=== PATIENT | female | born 1965 | race Hispanic/Latino ===

== ENCOUNTER → 2016-09-13 | Outpatient (CLI) | payer MEDICAID ==
[~2016-09-13] MED LIST: BENZ56AE TP; CALC-697 PO; CALCIUM; DCS100C PO; ESTR42.52 VG; HYDR-3583 PO; Hydrocodone Bit/Acetaminophen PO; IBP600T1 PO; IBUP-15 PO; LUTERA PO; MECL-105 PO; MECL-106 PO; METH4TAB PO; NITR-65 PO; ONDA4TAB10 PO; ONDA4TAB8 PO; POLY17PO23 GT; SULF1TAB38 PO; VENL75CA93; VITAMIN D; [UNRECOGNIZED DRUG - OTHER]
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
--- NOTE | 2016-09-14 15:54 | Diagnostic Imaging Report ---
Bilateral screening mammogram. The current study was also evaluated with a Computer Aided Detection (CAD) system. INDICATION: Screening. No current complaints stated on the questionnaire. COMPARISON: 09/10/2015. FINDINGS: The breasts are composed of heterogeneously dense parenchyma which may decrease mammographic sensitivity. There is no mass, architectural distortion, or suspicious cluster of calcification identified. A new benign-appearing calcification is seen in the upper-outer aspect of the left breast. IMPRESSION: No mammographic evidence of malignancy. ACR BI-RADS Category 2: Benign findings. Result letter will be mailed to the patient. Note: At least 10% of breast cancer is not imaged by mammography. Dictated by: Dictated on workstation # [id number]
== END ==
LOC: RAD 10:13
PROVIDERS: ATTEND Obstetrics & Gynecology
DX: Z12.31 Encounter for screening mammogram for malignant neoplasm of breast (principal)

== ENCOUNTER 2017-09-12 13:40 | Emergency (ER) | payer SELFPAY ==
[~2017-09-12] VITALS: Ht 162.6 cm; Wt 73.0 kg
[2017-09-12] MEDS ORDERED: fentaNYL INJECTION 100 MCG/2 ML AMP ONE (13:54)
[2017-09-12] MEDS ORDERED: fentaNYL INJECTION 100 MCG/2 ML AMP IVP ONE ×2 (14:00→14:30)
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
[2017-09-12] MEDS ORDERED: ONDANSETRON 4 MG/2 ML (SDV) Z0FRAN ONE ×2 (14:08)
[2017-09-12 14:11] LABS: EOSINOPHILS % (AUTO) 3 % (0-10); HEMATOCRIT 38 % (35-52); HEMOGLOBIN 11.9 G/DL (11.5-16.0); LYMPHOCYTES % (AUTO) 39 % (12-44); MEAN CORPUSCULAR HEMOGLOBIN 29 PG (25-34); MEAN CORPUSCULAR HGB CONC 31 G/DL (32-36); MEAN CORPUSCULAR VOLUME 93 FL (80-99); MEAN PLATELET VOLUME 10.9 FL (7.4-10.4); MONOCYTES % (AUTO) 7 % (0-12); NEUTROPHILS % (AUTO) 51 % (42-75); PLATELET COUNT 273 10^3/uL (130-400); RED BLOOD COUNT 4.07 10^6/uL (4.35-5.85); RED CELL DISTRIBUTION WIDTH 13.1 % (10.0-14.5)
[2017-09-12 14:12] LABS: BASOPHILS % (AUTO) 0 % (0-10); EOSINOPHILS # (AUTO) 0.2 10^3/uL (0.0-0.3); LYMPHOCYTES # (AUTO) 3.1 X 10^3 (1.0-4.0); MONOCYTES # (AUTO) 0.5 X 10^3 (0.0-1.0); NEUTROPHILS # (AUTO) 4.1 X 10^3 (1.8-7.8)
[2017-09-12] MEDS ORDERED: ONDANSETRON 4 MG/2 ML (SDV) Z0FRAN IVP ONE ×3 (14:15→16:00)
[2017-09-12 14:30] LABS: ALANINE AMINOTRANSFERASE 22 U/L (0-55); ALBUMIN 4.2 GM/DL (3.2-4.5); ALKALINE PHOSPHATASE 69 U/L (40-136); BILIRUBIN,DIRECT 0.2 MG/DL (0.0-0.3); BILIRUBIN,INDIRECT 0.5 MG/DL; BILIRUBIN,TOTAL 0.7 MG/DL (0.1-1.0); BUN/CREATININE RATIO 32; CALCIUM 9.3 MG/DL (8.5-10.1); CARBON DIOXIDE 26 MMOL/L (21-32); CHLORIDE 103 MMOL/L (98-107); GFR ESTIMATED > 60; GLUCOSE 115 MG/DL (70-105); POTASSIUM 3.7 MMOL/L (3.6-5.0); SODIUM 140 MMOL/L (135-145); TOTAL PROTEIN 6.9 GM/DL (6.4-8.2)
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
--- NOTE | 2017-09-12 14:58 | Diagnostic Imaging Report ---
INDICATION: Pain. TECHNIQUE: Four views of the left femur were obtained. FINDINGS: The alignment is normal. There is no fracture or dislocation. The soft tissues are unremarkable. IMPRESSION: No acute fracture or dislocation. Dictated by: Dictated on workstation # [id number]
[2017-09-12] MEDS ORDERED: TETANUS,DIPTH,PERTUSS P/F (BOOSTRIX) 0.5 ML VIAL IM ONE (15:00)
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
[2017-09-12] MEDS ORDERED: CYCL10TA9 PO (15:54)
[2017-09-12] MEDS ORDERED: ONDA4TAB11 PO (15:54)
[2017-09-12] MEDS ORDERED: ACHD5005 PO (15:54)
[2017-09-12 16:54] LABS: BILIRUBIN,URINE NEGATIVE (NEGATIVE); CLARITY,URINE CLEAR; COLOR,URINE YELLOW; GLUCOSE, URINE (UA) NEGATIVE (NEGATIVE); KETONES,URINE 2+ (NEGATIVE); LEUKOCYTE ESTERASE ,URINE 1+ (NEGATIVE); NITRITE,URINE NEGATIVE (NEGATIVE); PH,URINE 6.5 (5-9); PROTEIN,URINE NEGATIVE (NEGATIVE); UROBILINOGEN,URINE NORMAL (NORMAL)
[2017-09-12] MEDS ORDERED: KETOROLAC 30 MG/ML VIAL IVP ONE (17:00)
[2017-09-12 17:01] LABS: HCG,QUALITATIVE URINE NEGATIVE (NEGATIVE)
[2017-09-12 17:08] LABS: BACTERIA,URINE FEW /HPF; SQUAMOUS EPITHELIAL CELL,UR 0-2 /HPF; WBC,URINE RARE /HPF
[2017-09-12 17:56] VITALS: BP 146/74
== END 2017-09-12 17:56 | disposition home or self-care (01) ==
LOC: EDUNIT# 13:40 → ER 13:41
DX: S06.0X1A Concussion with loss of consciousness of 30 minutes or less, initial encounter (principal); S13.4XXA Sprain of ligaments of cervical spine, initial encounter; Z90.710 Acquired absence of both cervix and uterus; Z82.49 Family history of ischemic heart disease and other diseases of the circulatory system; V43.52XA Car driver injured in collision with other type car in traffic accident, initial encounter
CPT/HCPCS: 36415; 70450; 71045; 71250; 72125; 73502; 73552; 74176; 80053; 80076; 80320; 81000; 84703; 85025; 85027; 86850; 86900; 86901; 90715; 99285

== ENCOUNTER 2017-09-22 09:08 | Emergency (ER) | payer OTHER ==
[~2017-09-22] VITALS: Ht 162.6 cm; Wt 73.0 kg
[~2017-09-22 09:08] MED LIST changes: +ACHD5005 PO; +CYCL10TA9 PO; +ONDA4TAB11 PO
[2017-09-22 09:34] LABS: BASOPHILS % (AUTO) 0 % (0-10); EOSINOPHILS # (AUTO) 0.2 10^3/uL (0.0-0.3); EOSINOPHILS % (AUTO) 2 % (0-10); HEMATOCRIT 35 % (35-52); HEMOGLOBIN 12.1 G/DL (11.5-16.0); LYMPHOCYTES # (AUTO) 1.9 X 10^3 (1.0-4.0); LYMPHOCYTES % (AUTO) 29 % (12-44); MEAN CORPUSCULAR HEMOGLOBIN 31 PG (25-34); MEAN CORPUSCULAR HGB CONC 35 G/DL (32-36); MEAN CORPUSCULAR VOLUME 88 FL (80-99); MEAN PLATELET VOLUME 10.4 FL (7.4-10.4); MONOCYTES # (AUTO) 1.3 X 10^3 (0.0-1.0); MONOCYTES % (AUTO) 20 % (0-12); NEUTROPHILS # (AUTO) 3.1 X 10^3 (1.8-7.8); NEUTROPHILS % (AUTO) 48 % (42-75); PLATELET COUNT 277 10^3/uL (130-400); RED BLOOD COUNT 3.94 10^6/uL (4.35-5.85); WHITE BLOOD COUNT 6.4 10^3/uL (4.3-11.0)
[2017-09-22] MEDS ORDERED: IOHEXOL 350 MG/ML 100 ML (OMNIPAQUE 350) VIAL IV ONE (09:45)
[2017-09-22] MEDS ORDERED: NS 100 ML (IVPB) BAG IV ONE (09:45)
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
[2017-09-22 09:51] LABS: ALANINE AMINOTRANSFERASE 24 U/L (0-55); ALBUMIN 4.2 GM/DL (3.2-4.5); ALKALINE PHOSPHATASE 79 U/L (40-136); AMYLASE 71 U/L (25-125); BILIRUBIN,TOTAL 0.6 MG/DL (0.1-1.0); BUN/CREATININE RATIO 25; CALCIUM 9.5 MG/DL (8.5-10.1); CARBON DIOXIDE 24 MMOL/L (21-32); CHLORIDE 105 MMOL/L (98-107); CREATINE KINASE 115 U/L (29-168); CREATININE SERUM 0.63 MG/DL (0.60-1.30); GFR ESTIMATED > 60; GLUCOSE 99 MG/DL (70-105); LIPASE 23 U/L (8-78); MAGNESIUM 1.7 MG/DL (1.8-2.4); POTASSIUM 3.8 MMOL/L (3.6-5.0); SODIUM 142 MMOL/L (135-145); TOTAL PROTEIN 7.1 GM/DL (6.4-8.2)
[2017-09-22 09:58] LABS: CREATINE KINASE MB 3.6 NG/ML (<6.6)
[2017-09-22 10:04] LABS: BAND NEUTROPHILS 2 %; EOSINOPHILS % (MANUAL) 2 %; LYMPHOCYTES % (MANUAL) 21 %; MONOCYTES % (MANUAL) 18 %; NEUTROPHILS % (MANUAL) 53 %; RBC MORPH NORMAL; REACTIVE LYMPHOCYTES 4 %; TOXIC GRANULATION/VACUOLAZATIO 1+
[2017-09-22 10:21] LABS: PROTHROMBIN TIME PATIENT 13.5 SEC (12.2-14.7)
[2017-09-22] MEDS ORDERED: KETOROLAC 30 MG/ML VIAL IVP ONE (10:45)
--- NOTE | 2017-09-22 10:46 | Diagnostic Imaging Report ---
PROCEDURE: CT chest, abdomen, and pelvis with contrast. TECHNIQUE: Multiple contiguous axial images were obtained through the chest, abdomen, and pelvis after the administration of intravenous contrast. INDICATION: Left-sided chest pain The recent CT chest, abdomen and pelvis exam of 09/12/2017 failed to show any sign of an acute abnormality. On this study, the images through the thorax again show that the lungs are clear and well aerated. There is no evidence for failure, pneumonia or for a pleural effusion to suggest an acute abnormality. The heart size is within normal limits and stable when compared to the prior exam. The pulmonary arteries are not optimally opacified but there is no definite defect to suggest a pulmonary embolus. The aorta is not abnormally dilated and there is no evidence for a dissection. There is no mediastinal or hilar adenopathy. There is a roughly 1 CM low density nodule in the left lobe of the thyroid. Ultrasound would be recommended for further evaluation of this finding. There is no obvious breast mass. The liver, spleen, pancreas, gallbladder, kidneys, aorta and inferior vena cava and adrenals are within normal limits. The stomach is partially filled with fluid and consequently difficult to assess. There are a few fluid-filled segments of small bowel. These have developed in the interval since the prior exam. This appearance is nonspecific but could be related to a mild ileus perhaps related to enteritis. There is no sign of a bowel obstruction. There is no pelvic mass or free fluid collection noted. The uterus is surgically absent. There is a pessary in place. The urinary bladder is grossly unremarkable. The appendix is not abnormally thickened. The bone windows show no sign of a fracture or of a destructive lesion. IMPRESSION: 1. In the interval since the previous exam a few fluid filled segments of small bowel have developed. This appearance is nonspecific but could be related to a mild ileus perhaps secondary to enteritis. Clinical followup is recommended. 2. There is no acute abnormality of the abdomen or pelvis noted otherwise. 3. The small low density nodule in the left lobe of the thyroid should be further evaluated by ultrasound. 4. These results were discussed with Dr. Whit Zaldivar. Dictated by: Dictated on workstation # [id number]
[2017-09-22] MEDS ORDERED: MELO15TA14 PO (10:49)
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
[2017-09-22 11:03] VITALS: BP 126/68
== END 2017-09-22 11:02 | disposition home or self-care (01) ==
LOC: EDUNIT# 09:08 → ER 09:11
DX: R07.89 Other chest pain (principal); Z90.710 Acquired absence of both cervix and uterus; V89.2XXA Person injured in unspecified motor-vehicle accident, traffic, initial encounter
CPT/HCPCS: 36415; 71046; 71260; 74177; 80053; 82150; 82550; 82553; 83690; 83735; 83880; 84484; 85007; 85025; 85027; 85610; 85730; 93005; 93041; 96374

== ENCOUNTER 2018-02-19 09:20 | Emergency (ER) | payer SELFPAY ==
[~2018-02-19] VITALS: Ht 162.6 cm; Wt 74.8 kg
[~2018-02-19 09:20] MED LIST changes: +MELO15TA14 PO
[2018-02-19] MEDS ORDERED: NS IV 1000 ML 1,000 ML IV SCH (11:08)
[2018-02-19] MEDS ORDERED: ONDANSETRON 4 MG/2 ML (SDV) Z0FRAN IVP ONE (11:15)
[2018-02-19] MEDS ORDERED: HYOSCYAMINE 0.125 MG (LEVSIN) TAB PO ONE (11:15)
--- NOTE | 2018-02-19 11:15 | ED Abdominal Pain ---
General Chief Complaint: Abdominal/GI Problems Stated Complaint: NAUSEA/DIARRHEA Nursing Triage Note: Pt presents with c/o nausea and vomiting, with low abd pain. Reports she has had sx for 2 weeks since returning from [place]. Sepsis Screen: No Definite Risk (RAFFI SAMUEL STUDENT) History of Present Illness Date Seen by Provider: Feb 19, 2018 Time Seen by Provider: 11:10 Initial Comments Patient is a 52-year-old female who presents to the emergency room with complaints of nausea vomiting and diarrhea for 2 weeks. She just returned on from a 2 week trip to [place]. She reports the nausea, vomiting and diarrhea started 1 week prior to her return to the [facility]. She reports that the diarrhea has become worse the last few days and is accompanied with cramping abdominal pain. Timing/Duration: Other (2 weeks) Severity/Quality: Mild Location: RLQ, LLQ, Suprapubic Radiation: No Radiation Activities at Onset: None Modifying Factors: Worsens With Defecating, Worsens With Eating Associated Symptoms: Nausea/Vomiting (RAFFI SAMUEL STUDENT) Allergies and Home Medications Allergies Coded Allergies: No Known Drug Allergies (Unverified , 05/30/11) Home Medications Cyclobenzaprine HCl 10 Mg Tablet, 10 MG PO Q8H PRN for SPASMS Prescribed by: SANJU HERNANDEZ on 09/12/17 1554 Hydrocodone Bit/Acetaminophen 1 Tab Tab, 1 EACH PO Q6H PRN for BREAKTHROUGH PAIN Prescribed by: SANJU HERNANDEZ on 09/12/17 1554 Meclizine HCl 25 Mg Tablet, 25 MG PO TID PRN for dizziness Prescribed by: NATHEN MILLARD on 01/17/16 1006 Meloxicam 15 Mg Tablet, 15 MG PO DAILY Prescribed by: VIJAY WASHINGTON on 09/22/17 1049 Methylprednisolone 4 Mg Tab.ds.pk, 4 MG PO UD Prescribed by: VIJAY WASHINGTON on 04/01/16 0508 Nitrofurantoin Monohyd/M-Cryst 100 Mg Capsule, 100 MG PO BID Prescribed by: VIJAY WASHINGTON on 04/01/16 0519 Ondansetron 4 Mg Tab.rapdis, 4 MG PO Q6H PRN for NAUSEA/VOMITING Prescribed by: SANJU HERNANDEZ on 09/12/17 1554 Ondansetron HCl 4 Mg Tablet, 4 MG PO Q8H PRN for nausea Prescribed by: NATHEN MILLARD on 01/17/16 1006 Patient Home Medication List Home Medication List Reviewed: Yes (RAFFI SAMUEL STUDENT) Review of Systems Constitutional: see HPI; No chills, No diaphoresis EENTM: See HPI; No Blurred Vision, No Double Vision Respiratory: See HPI; Denies Cough, Denies Shortness of Air Cardiovascular: See HPI; Denies Chest Pain Gastrointestinal: See HPI, Abdominal Pain, Diarrhea, Nausea, Vomiting Genitourinary: See HPI; Denies Burning Musculoskeletal: see HPI; No back pain, No joint pain Skin: see HPI; No change in color, No change in hair/nails Psychiatric/Neurological: See HPI; Denies Anxiety, Denies Depressed, Denies Emotional Problems Endocrine: See HPI; Denies Excessive Sweating, Denies Flushing Hematologic/Lymphatic: See HPI; Denies Anemia (RAFFI SAMUEL) Past Zaqdmzq-Qyvyjv-Qmvoys Hx Past Med/Social Hx: Reviewed Nursing Past Med/Soc Hx (RAFFI SAMUEL) Patient Social History 2nd Hand Smoke Exposure: No Recent Foreign Travel: Yes (Spent 2 weeks in [place]) Contact w/Someone Who Travel: No Recent Infectious Disease Expo: No Recent Hopitalizations: No (RAFFI SAMUEL STUDENT) Immunizations Up To Date Tetanus Booster (TDap): Unknown Date of Influenza Vaccine: Jun 05, 2013 (RAFFI SAMUEL) Past Medical History Surgeries: Yes (HYST/BSO) Hysterectomy, Oophorectomy Respiratory: No Cardiac: Yes (PALIPITATIONS) Palpitations Neurological: Yes Vertigo : No 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 Disorders: No Female 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 Disorders: 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 Sexually Transmitted Disease: No HIV/AIDS: No Genitourinary: No Gastrointestinal: No Musculoskeletal: Yes (BACK PROBLEMS/KNEE PROBLEMS) Endocrine: No Cancer: No Psychosocial: No Integumentary: No Blood Disorders: No (RAFFI SAMUEL STUDENT) Family Medical History Reviewed Nursing Family Hx (RAFFI SAMUEL) Cancer 03 MOTHER Family history: Arthritis 03 FATHER 03 MOTHER Family history: Cardiovascular disease 03 FATHER Heart disease 03 FATHER History of - respiratory disease 03 FATHER No Family History of: Abdominal aortic aneurysm Alcoholism Family history: Alzheimer's disease Family history: Asthma Family history: Breast disease Family history: Coronary thrombosis Family history: Diabetes mellitus Family history: Gastrointestinal disease Family history: Hypertension Family history: Thyroid disorder Hereditary disease Kidney disease Myocardial infarction Parkinson's disease Psychotic disorder Seizure disorder Stroke Physical Exam Vital Signs Vital Signs - First Documented 02/19/18 10:02 Temp 97.8 Resp 18 Pulse Ox 99 (FREDI DE LUNA MD) Vital Signs Capillary Refill : Less Than 3 Seconds (RAFFI SAMUEL STUDENT) General Appearance: WD/WN, no apparent distress; No mild distress HEENT: normal ENT inspection, TMs normal, pharynx normal Neck: non-tender, full range of motion, normal inspection Respiratory: chest non-tender, lungs clear, normal breath sounds Cardiovascular: regular rate, rhythm, no edema, no gallop Gastrointestinal: normal bowel sounds, soft, tenderness (the patient has tenderness in her lower quadrants on palpation. She describes the pain as cramping) Extremities: normal range of motion, non-tender, normal inspection Back: normal inspection, no CVA tenderness, no vertebral tenderness Neurologic/Psychiatric: alert, normal mood/affect, oriented x 3 Skin: normal color, warm/dry Lymphatic: no adenopathy (RAFFI SAMUEL STUDENT) Progress/Results/Core Measures Results/Orders Lab Results Laboratory Tests Test 02/19/18 10:22 Range/Units (FREDI DE LUNA MD) My Orders Orders - FREDI DE LUNA MD Comprehensive Metabolic Panel (02/19/18 11:08) Lipase (02/19/18 11:08) Amylase (02/19/18 11:08) Ua Culture If Indicated (02/19/18 11:08) Saline Lock/Iv-Start (02/19/18 11:08) Cbc With Automated Diff (02/19/18 11:08) Cbc No Diff (02/19/18 11:08) Ondansetron Injection (Zofran Injectio (02/19/18 11:15) Saline Lock/Iv-Start (02/19/18 11:08) Ns Iv 1000 Ml (Sodium Chloride 0.9%) (02/19/18 11:08) Hyoscyamine Sl Tablet (Levsin Sl Tablet) (02/19/18 11:15) (FREDI DE LUNA MD) Vital Signs/I&O 02/19/18 10:02 Temp 97.8 Resp 18 B/P (MAP) Pulse Ox 99 (FREDI DE LUNA MD) Progress Progress Note : Progress Note 1200: At this time we are waiting on a urine specimen. The patient reports that she is feeling much better at this time her abdominal pain is gone she did have 1 more bout of diarrhea but there is no cramping after the Levsin and she is no longer tender to palpate. The patient agrees with plan to discharge if urine specimen is okay and she will be sent home with a prescription for Levsin, and instructions on the use of [id number] Pepto-Bismol and antidiarrheals. (RAFFI SAMUEL STUDENT) Progress Note : Time: 11:21 Progress Note I saw this patient with Raffi. My history, exam, workup, and treatment plan were consistent with his. Fredi De Luna MD (FREDI DE LUNA MD) Departure Impression Primary Impression: Nausea vomiting and diarrhea Additional Impression: Travelers' diarrhea Disposition: HOME, SELF-CARE Condition: Stable/Unchanged Departure-Patient Inst. Decision time for Depature: 13:01 (RAFFI SAMUEL STUDENT) Referrals: ZACHARY JOYA DO (PCP) Primary Care Physician ANN MACHADO (Family) Primary Care Physician Patient Instructions: Diarrhea and Traveler's Diarrhea, Adult (DC), Nausea and Vomiting, Adult (DC) Add. Discharge Instructions: Take medications as directed, follow up with your primary care physician within one week call tomorrow morning for appointment time. While picking up your prescription for Levsin and zofran also get some Pepto-Bismol and antidiarrheals and take as directed per packaging. Try eating a very bland diet over the next few days and advance as tolerated. Return back to the emergency room for increasing pain, worsening vomiting, diarrhea, nausea or any other concerns as needed. All discharge instructions reviewed with patient and/or family. Voiced understanding. RAFFI SAMUEL STUDENT Feb 19, 2018 11:15 FREDI DE LUNA MD Feb 19, 2018 11:22
[2018-02-19 11:37] LABS: BASOPHILS % (AUTO) 0 % (0-10); EOSINOPHILS # (AUTO) 0.1 10^3/uL (0.0-0.3); EOSINOPHILS % (AUTO) 2 % (0-10); HEMATOCRIT 40 % (35-52); HEMOGLOBIN 14.1 G/DL (11.5-16.0); LYMPHOCYTES # (AUTO) 1.8 X 10^3 (1.0-4.0); LYMPHOCYTES % (AUTO) 27 % (12-44); MEAN CORPUSCULAR HEMOGLOBIN 30 PG (25-34); MEAN CORPUSCULAR HGB CONC 35 G/DL (32-36); MEAN CORPUSCULAR VOLUME 85 FL (80-99); MEAN PLATELET VOLUME 10.4 FL (7.4-10.4); MONOCYTES # (AUTO) 0.9 X 10^3 (0.0-1.0); MONOCYTES % (AUTO) 14 % (0-12); NEUTROPHILS # (AUTO) 3.8 X 10^3 (1.8-7.8); NEUTROPHILS % (AUTO) 58 % (42-75); PLATELET COUNT 341 10^3/uL (130-400); RED BLOOD COUNT 4.71 10^6/uL (4.35-5.85); RED CELL DISTRIBUTION WIDTH 13.7 % (10.0-14.5); WHITE BLOOD COUNT 6.5 10^3/uL (4.3-11.0)
[2018-02-19 11:50] LABS: ALANINE AMINOTRANSFERASE 31 U/L (0-55); ALBUMIN 4.8 GM/DL (3.2-4.5); ALKALINE PHOSPHATASE 99 U/L (40-136); AMYLASE 53 U/L (25-125); BILIRUBIN,TOTAL 1.1 MG/DL (0.1-1.0); BUN/CREATININE RATIO 23; CALCIUM 9.6 MG/DL (8.5-10.1); CARBON DIOXIDE 18 MMOL/L (21-32); CHLORIDE 110 MMOL/L (98-107); CREATININE SERUM 0.69 MG/DL (0.60-1.30); GFR ESTIMATED > 60; GLUCOSE 111 MG/DL (70-105); LIPASE 13 U/L (8-78); POTASSIUM 3.7 MMOL/L (3.6-5.0); SODIUM 138 MMOL/L (135-145); TOTAL PROTEIN 8.1 GM/DL (6.4-8.2)
[2018-02-19 12:41] LABS: CLARITY,URINE VERY CLOUDY; COLOR,URINE YELLOW; GLUCOSE, URINE (UA) NEGATIVE (NEGATIVE); KETONES,URINE NEGATIVE (NEGATIVE); LEUKOCYTE ESTERASE ,URINE 1+ (NEGATIVE); NITRITE,URINE NEGATIVE (NEGATIVE); PH,URINE 6 (5-9); PROTEIN,URINE 2+ (NEGATIVE); UROBILINOGEN,URINE NORMAL (NORMAL)
[2018-02-19 13:00] LABS: BACTERIA,URINE NEGATIVE /HPF; BILIRUBIN,URINE 1+ (NEGATIVE); WBC,URINE RARE /HPF
[2018-02-19 13:36] VITALS: BP 116/78
--- OUTSIDE RECORDS SUMMARY | 2018-02-19 16:36 | XMS REPORT ---
Author Author DARRON SQUIRES Organization [facility] Address [address] [place] [address] Care Team Providers Care Pipelines Supervisor Name Role Phone SHAW DARRON Unavailable PROBLEMS Type Condition ICD9-CM Code [id number] Code Onset Dates Condition Status SNOMED Code Problem Arthralgia M25.50 Active 66957268 Problem Migraine G43.909 Active 09297156 Problem Carpal tunnel syndrome G56.00 Active 97410871 Problem Neuropathy G62.9 Active 154982791 Problem Encounter for dental examination Z01.20 Active 590703261 Problem Head injury due to trauma, subsequent encounter S09.90XD Active 06554591 Problem Fatigue R53.83 Active 72153326 Problem Anxiety F41.9 Active 33667868 Problem Post concussive syndrome F07.81 Active 62958978 ALLERGIES No Known Allergies SOCIAL HISTORY Never Assessed PLAN OF CARE Activity Details Follow Up prn Reason: VITAL SIGNS Height 64 in 2016-10-18 Weight 157.4 lbs 2016-10-18 Temperature 97.4 degrees Fahrenheit 2016-10-18 Heart Rate 56 bpm 2016-10-18 Respiratory Rate 18 2016-10-18 BMI 27.01 kg/m2 2016-10-18 Blood pressure systolic 120 mmHg 2016-10-18 Blood pressure diastolic 82 mmHg 2016-10-18 MEDICATIONS Medication Instructions Dosage Frequency Start Date End Date Duration Status Tylenol 325 MG Orally every 6 hrs 2 tablets as needed 6h Active Zofran 4 MG Orally q6 prn 1 tablet Active Effexor XR 150 MG Orally Once a day 1 capsule with food 24h Dec, Active Meclizine HCl 25 MG Orally TID 1 tablet as needed 8h Active RESULTS No Results PROCEDURES No Known procedures IMMUNIZATIONS No Known Immunizations MEDICAL (GENERAL) HISTORY Type Description Date Medical History Carpal tunnel syndrome Medical History fell and hit head 01/2016 Surgical History hysterectomy 11/2012 Surgical History rectocele repair (Rodriguez) 03/2012 Hospitalization History Seen on 01/12/16 at ER. She got a CT scan after falling and hitting her head. 01/2016 Hospitalization History returned to hospital, kept overnight after dizziness/ headache continued after fall on 01/12/16 01/16/16 Hospitalization History was hospitalized due to losing consciousness 2016
--- OUTSIDE RECORDS SUMMARY | 2018-02-19 16:36 | XMS REPORT ---
Author Author ANN MACHADO Organization [employer] Address Unknown Phone Unavailable Care Team Providers Care Ambulance Dispatcher Name Role Phone ANN MACHADO CP Unavailable Allergies, Adverse Reactions, Alerts Substance Reaction Event Type N.K.D.A. Info Not Available Non Drug Allergy Problems Problem Type Condition ICD-9 Code Onset Dates Condition Status Assessment Screening for lipoid disorders V77.91 Active Problem Unspecified peripheral vertigo 386.10 Active Problem Other specified disorders of bladder 596.89 Active Problem Other malaise and fatigue 780.79 Active Problem Unspecified breast screening V76.10 Active Assessment Physical exam V70.9 Active Problem Uterine prolapse without mention of vaginal wall prolapse 618.1 Active Problem Screening for lipoid disorders V77.91 Active Medications Medication Code System Code Instructions Start Date End Date Status Dosage Ibuprofen [facility] [address]-87 200 MG Orally every 6 hrs 1 capsule as needed Procedures Procedure Coding System Code Date Office Visit, Est Pt., Level 4 CPT-4 06457 Apr 15, 2015 Vital Signs Date/Time: Apr 15, 2015 Temperature 98.5 F Weight 164.4 lbs Height 64 in BMI 28.22 Index Blood Pressure Diastolic 72 mmHg Blood Pressure Systolic 118 mmHg Cardiac Monitoring Heart Rate 70 bpm Results No Known Results Summary Purpose [employer] Submission
--- OUTSIDE RECORDS SUMMARY | 2018-02-19 16:36 | XMS REPORT ---
Author Author RANGEL NOE [facility] Address Unknown Care Team Providers Care Meat Pickler Name Role Phone HASMUKHRANGEL Unavailable PROBLEMS Type Condition ICD9-CM Code QLH43-II Code Onset Dates Condition Status SNOMED Code Problem Arthralgia M25.50 Active 90355585 Problem Migraine G43.909 Active 38272797 Problem Carpal tunnel syndrome G56.00 Active 73762499 Problem Neuropathy G62.9 Active 575469388 Problem Encounter for dental examination Z01.20 Active 217539699 Problem Head injury due to trauma, subsequent encounter S09.90XD Active 73938259 Problem Fatigue R53.83 Active 76918273 Problem Anxiety F41.9 Active 50497501 Problem Post concussive syndrome F07.81 Active 48588605 ALLERGIES Substance Reaction Event Type Date Status N.K.D.A. Unknown Non Drug Allergy Aug, Unknown SOCIAL HISTORY No smoking Hx information available PLAN OF CARE Activity Details Follow Up prn Reason:crown VITAL SIGNS Height 64 in 2016-08-18 Blood pressure systolic 67 mmHg 2016-08-18 Blood pressure diastolic 36 mmHg 2016-08-18 MEDICATIONS Medication Instructions Dosage Frequency Start Date End Date Duration Status Venlafaxine HCl Active RESULTS No Results PROCEDURES Procedure Date Ordered Related Diagnosis Body Site RESIN COMPOS - 3 SURFACES POSTERIOR Aug 18, 2016 Billing Notes on claim Aug 18, 2016 IMMUNIZATIONS No Known Immunizations
--- OUTSIDE RECORDS SUMMARY | 2018-02-19 16:36 | XMS REPORT ---
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 Active Problem Other malaise and fatigue 780.79 Active Problem Unspecified breast screening V76.10 Active Assessment Dental examination V72.2 Active Problem Uterine prolapse without mention of vaginal wall prolapse 618.1 Active Problem Screening for lipoid disorders V77.91 Active Medications No Known Medications Procedures Procedure Coding System Code Date INTRAORL-PERIAPICAL 1 FILM 16991 CPT-4 D0220 Apr 07, 2015 INTRAORL-PERIAPICAL EA ADD FILM CPT-4 D0230 Apr 07, 2015 PERIODIC ORAL EXAMINATION CPT-4 D0120 Apr 07, 2015 TOPICAL FLUORIDE VARNISH CPT-4 D1206 Apr 07, 2015 INTRAORL-PERIAPICAL EA ADD FILM CPT-4 D0230 Apr 07, 2015 INTRAORL-PERIAPICAL EA ADD FILM CPT-4 D0230 Apr 07, 2015 PROPHYLAXIS - ADULT CPT-4 D1110 Apr 07, 2015 BITEWINGS - FOUR FILMS CPT-4 D0274 Apr 07, 2015 Results No Known Results Summary Purpose [employer] Submission
--- OUTSIDE RECORDS SUMMARY | 2018-02-19 16:36 | XMS REPORT ---
Author Author YAMILA LINTON [facility] [employer] Address Unknown Phone Unavailable Care Team Providers Care Rod And Tube Straightener Name Role Phone YAMILA LINTON CP Unavailable Allergies, Adverse Reactions, Alerts Substance Reaction Event Type N.K.D.A. 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 Active Problem Other malaise and fatigue 780.79 Active Problem Unspecified breast screening V76.10 Active Assessment Acute sinusitis, recurrence not specified, unspecified location J01.90 Active Problem Uterine prolapse without mention of vaginal wall prolapse 618.1 Active Problem Screening for lipoid disorders V77.91 Active Medications Medication Code System Code Instructions Start Date End Date Status Dosage Augmentin [facility] [address]-19 875-125 MG Orally every 12 hrs Jul 01, 2015 Jul 11, 2015 1 tablet Ibuprofen [facility] [address]-13 200 MG Orally every 6 hrs 1 capsule as needed PredniSONE [facility] [address]-51 20 MG Orally Once a day Jul 01, 2015 Jul 06, 2015 1 tablet with food or milk Procedures Procedure Coding System Code Date Office Visit, Est Pt., Level 3 CPT-4 28806 Jul 01, 2015 Vital Signs Date/Time: Jul 01, 2015 Temperature 98.1 F Weight 169.4 lbs Height 64 in BMI 29.07 Index Blood Pressure Diastolic 78 mmHg Blood Pressure Systolic 120 mmHg Cardiac Monitoring Heart Rate 76 bpm Results No Known Results Summary Purpose [employer] Submission
--- OUTSIDE RECORDS SUMMARY | 2018-02-19 16:36 | XMS REPORT ---
Author Author RANGEL NOE [facility] Address Unknown Care Team Providers Care Hvac Mechanical Engineer Name Role Phone RANGEL NOE Unavailable PROBLEMS Type Condition ICD9-CM Code [id number] Code Onset Dates Condition Status SNOMED Code Problem Carpal tunnel syndrome G56.00 Active 21519168 Problem Arthralgia M25.50 Active 11920866 Problem Migraine G43.909 Active 93361427 Problem Neuropathy G62.9 Active 506879441 Problem Encounter for dental examination Z01.20 Active 120402310 Problem Post concussive syndrome F07.81 Active 62778896 Problem Fatigue R53.83 Active 97042219 Problem Anxiety F41.9 Active 18915975 Problem Head injury due to trauma, subsequent encounter S09.90XD Active 63407538 ALLERGIES Substance Reaction Event Type Date Status N.K.D.A. Unknown Non Drug Allergy Jun, Unknown SOCIAL HISTORY No smoking Hx information available PLAN OF CARE Activity Details Follow Up prn Reason:filling VITAL SIGNS Blood pressure systolic 148 mmHg 2016-07-01 Blood pressure diastolic 77 mmHg 2016-07-01 MEDICATIONS Medication Instructions Dosage Frequency Start Date End Date Duration Status Zofran 4 MG Orally q6 prn 1 tablet Active Ibuprofen 200 MG Orally every 6 hrs 1 capsule as needed 6h Active Tylenol 325 MG Orally every 6 hrs 2 tablets as needed 6h Active Effexor XR 75 MG Orally Once a day 1 capsule with food 24h Dec, Active Meclizine HCl 25 MG Orally TID 1 tablet as needed 8h Active RESULTS No Results PROCEDURES Procedure Date Ordered Related Diagnosis Body Site LTD ORAL EVALUATION - PROBLEM FOCUS Jul 01, 2016 INTRAORL-PERIAPICAL 1 FILM 59134 Jul 01, 2016 BITEWING - SINGLE FILM Jul 01, 2016 IMMUNIZATIONS No Known Immunizations
--- OUTSIDE RECORDS SUMMARY | 2018-02-19 16:36 | XMS REPORT ---
Author Author RANGEL NOE [facility] Address Unknown Care Team Providers Care Food Demonstrator Name Role Phone RANGEL NOE Unavailable PROBLEMS Type Condition ICD9-CM Code [id number] Code Onset Dates Condition Status SNOMED Code Problem Arthralgia M25.50 Active 10115390 Problem Migraine G43.909 Active 34918245 Problem Carpal tunnel syndrome G56.00 Active 56475488 Problem Neuropathy G62.9 Active 416071408 Problem Encounter for dental examination Z01.20 Active 381046046 Problem Head injury due to trauma, subsequent encounter S09.90XD Active 55095159 Problem Fatigue R53.83 Active 38408064 Problem Anxiety F41.9 Active 45738976 Problem Post concussive syndrome F07.81 Active 71773503 ALLERGIES Unknown Allergies SOCIAL HISTORY No smoking Hx information available PLAN OF CARE VITAL SIGNS MEDICATIONS Unknown Medications RESULTS No Results PROCEDURES Procedure Date Ordered Related Diagnosis Body Site Billing Notes on claim Oct 01, 2016 IMMUNIZATIONS No Known Immunizations
--- OUTSIDE RECORDS SUMMARY | 2018-02-19 16:36 | XMS REPORT ---
Author Author ANN MACHADO [facility] [employer] Address Unknown Phone Unavailable Care Team Providers Care Straw Hat Washer Operator Name Role Phone ANN MACHADO CP Unavailable Allergies No Known Allergies Problems Problem Type Condition Code Onset Dates Condition Status Problem Post concussive syndrome F07.81 Active Problem Fatigue R53.83 Active Problem Head injury due to trauma, subsequent encounter S09.90XD Active Problem Carpal tunnel syndrome G56.00 Active Assessment Encounter for immunization Z23 Active Problem Arthralgia M25.50 Active Problem Migraine G43.909 Active Medications No Known Medications Procedures Procedure Coding System Code Date SINGLE IMMUNIZATION ADMIN CPT-4 06056 Jun 16, 2016 FLUARIX QUAD P-FREE 3 AND UP .50 2015 CPT-4 39383 Jun 16, 2016 Results No Known Results Immunizations Vaccine Administration Date FLUARIX QUAD P-FREE 3 AND UP .50 2015Jun 16, 2016 Summary Purpose [employer] Submission
--- OUTSIDE RECORDS SUMMARY | 2018-02-19 16:36 | XMS REPORT ---
Author Author ANN MACHADO Organization [employer] Address Unknown Phone Unavailable Care Team Providers Care [place]ayaway Clerk Name Role Phone ANN MACHADO CP Unavailable Allergies No Known Allergies Problems Problem Type Condition ICD-9 Code Onset Dates Condition Status Problem Unspecified peripheral vertigo 386.10 Active Problem Other specified disorders of bladder 596.89 Active Problem Other malaise and fatigue 780.79 Active Problem Unspecified breast screening V76.10 Active Problem Uterine prolapse without mention of vaginal wall prolapse 618.1 Active Problem Screening for lipoid disorders V77.91 Active Medications No Known Medications Results No Known Results Summary Purpose [employer] Submission
--- OUTSIDE RECORDS SUMMARY | 2018-02-19 16:36 | XMS REPORT ---
Author Author ANN MACHADO [facility] Address [address] [place] [address] Care Team Providers Care Curtain Drier Name Role Phone ANN MACHADO Unavailable PROBLEMS Type Condition ICD9-CM Code [id number] Code Onset Dates Condition Status SNOMED Code Problem Carpal tunnel syndrome G56.00 Active 97287765 Assessment Anxiety F41.9 Jul, Active 49808912 Problem Anxiety F41.9 Active 79304354 Problem Head injury due to trauma, subsequent encounter S09.90XD Active 67040827 Problem Arthralgia M25.50 Active 14469976 Problem Migraine G43.909 Active 21726033 Problem Post concussive syndrome F07.81 Active 28021910 Problem Fatigue R53.83 Active 90829798 ALLERGIES Substance Reaction Event Type Date Status N.K.D.A. Unknown Non Drug Allergy Jul, Unknown SOCIAL HISTORY No smoking Hx information available PLAN OF CARE VITAL SIGNS Height 64 in 2016-08-02 Weight 156.2 lbs 2016-08-02 Heart Rate 72 bpm 2016-08-02 Respiratory Rate 18 2016-08-02 BMI 26.81 kg/m2 2016-08-02 Blood pressure systolic 124 mmHg 2016-08-02 Blood pressure diastolic 81 mmHg 2016-08-02 MEDICATIONS Medication Instructions Dosage Frequency Start Date End Date Duration Status Effexor XR 150 MG Orally Once a day 1 capsule with food 24h Dec, Active Ibuprofen 200 MG Orally every 6 hrs 1 capsule as needed 6h Active Tylenol 325 MG Orally every 6 hrs 2 tablets as needed 6h Active Meclizine HCl 25 MG Orally TID 1 tablet as needed 8h Active Zofran 4 MG Orally q6 prn 1 tablet Active RESULTS No Results PROCEDURES Procedure Date Ordered Related Diagnosis Body Site Office Visit, Est Pt., Level 3 Aug 02, 2016 IMMUNIZATIONS No Known Immunizations
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
--- OUTSIDE RECORDS SUMMARY | 2018-02-19 16:37 | XMS REPORT ---
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 Info Not Available Non Drug Allergy Problems Problem Type Condition Code Onset Dates Condition Status Problem Unspecified breast screening V76.10 Active Problem Uterine prolapse without mention of vaginal wall prolapse 618.1 Active Problem Screening for lipoid disorders V77.91 Active Problem Arthralgia M25.50 Active Problem Migraine G43.909 Active Problem Fatigue R53.83 Active Problem Unspecified peripheral vertigo 386.10 Active Problem Other specified disorders of bladder 596.89 Active Problem Carpal tunnel syndrome G56.00 Active Problem Other malaise and fatigue 780.79 Active Assessment Carpal tunnel syndrome G56.00 Active Assessment Migraine G43.909 Active Assessment Arthralgia M25.50 Active Assessment Fatigue R53.83 Active Medications Medication Code System Code Instructions Start Date End Date Status Dosage Wrist Splint/Cock-Up/Right M [facility] 0 ... December 08, 2015 as directed Effexor XR [facility] [address]-80 75 MG Orally Once a day December 08, 2015 1 capsule with food Ibuprofen [facility] [address]-85 200 MG Orally every 6 hrs 1 capsule as needed Procedures Procedure Coding System Code Date Office Visit, Est Pt., Level 3 CPT-4 89864 December 08, 2015 Vital Signs Date/Time: December 08, 2015 Temperature 98.3 F Weight 161.4 lbs Height 64 in BMI 27.70 Index Blood Pressure Diastolic 72 mmHg Blood Pressure Systolic 110 mmHg Cardiac Monitoring Heart Rate 72 bpm Results No Known Results Summary Purpose [employer] Submission
== END 2018-02-19 13:36 | disposition home or self-care (01) ==
LOC: EDUNIT# 09:20 → ER 09:22
DX: R11.2 Nausea with vomiting, unspecified (principal); R19.7 Diarrhea, unspecified; Z79.52 Long term (current) use of systemic steroids; Z90.710 Acquired absence of both cervix and uterus; Z82.49 Family history of ischemic heart disease and other diseases of the circulatory system
CPT/HCPCS: 36415; 80053; 81000; 82150; 83690; 85025; 85027; 87045; 87046; 87328; 87329; 96361; 96374

== ENCOUNTER → 2018-10-13 | Outpatient (CLI) | payer OTHER ==
--- NOTE | 2018-10-13 21:21 | Diagnostic Imaging Report ---
INDICATION: Routine screening. Comparison is made with prior mammogram from 09/13/2016 and 09/10/2015. 2-D and 3-D bilateral screening mammography was performed with CAD. The current study was also evaluated with a Computer Aided Detection (CAD) system. FINDINGS: Both breasts are heterogeneously dense, limiting the sensitivity of mammography. The parenchymal pattern is stable. No dominant mass or malignant-appearing microcalcifications are seen. The axillae are unremarkable. IMPRESSION: No mammographic features suspicious for malignancy are identified. ACR BI-RADS Category 1: Negative. Result letter will be mailed to the patient. Note: At least 10% of breast cancer is not imaged by mammography. Dictated by: Dictated on workstation # [id number]
== END ==
LOC: RAD 08:10
PROVIDERS: ATTEND Obstetrics & Gynecology
DX: Z12.31 Encounter for screening mammogram for malignant neoplasm of breast (principal)
CPT/HCPCS: 77067

== ENCOUNTER 2019-01-23 17:30 | Emergency (ER) | payer OTHER ==
[~2019-01-23] VITALS: Ht 162.6 cm; Wt 77.1 kg
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
[2019-01-23 19:00] VITALS: BP 153/86
== END 2019-01-23 19:00 | disposition home or self-care (01) ==
LOC: EDUNIT# 17:30 → ER 17:30
DX: S40.012A Contusion of left shoulder, initial encounter (principal); R40.2142 Coma scale, eyes open, spontaneous, at arrival to emergency department; R40.2252 Coma scale, best verbal response, oriented, at arrival to emergency department; R40.2362 Coma scale, best motor response, obeys commands, at arrival to emergency department; Z79.52 Long term (current) use of systemic steroids; Z90.710 Acquired absence of both cervix and uterus; Z82.49 Family history of ischemic heart disease and other diseases of the circulatory system; V49.40XA Driver injured in collision with unspecified motor vehicles in traffic accident, initial encounter
CPT/HCPCS: 70450; 71045; 72125; 73030